=== PATIENT | male | born 1955 | race Caucasian/White ===

== ENCOUNTER 2022-03-23 09:16 | Emergency (ER) | payer OTHER ==
--- NOTE | 2022-03-23 11:52 | ED Physician Documentation ---
History of Present Illness - Stated complaint Stated Complaint: ABD PX - Chief complaint Chief Complaint: Abd Pain - History obtained from History obtained from: Patient - Additonal information Additional information: The patient comes to the emergency department chief complaint of urinary retention for about the last 12 hours. He states that he has a history of prostatic hypertrophy and that he has occasionally had difficulty urinating for. He denies any fevers or chills. He did not have any dysuria or hematuria leading up to this. Review of Systems Constitutional: reports: Reviewed and negative Eyes: reports: Reviewed and negative Ears: reports: Reviewed and negative Nose: reports: Reviewed and negative Throat: reports: Reviewed and negative Cardiac: reports: Reviewed and negative Respiratory: reports: Reviewed and negative GI: reports: Reviewed and negative : reports: Unable to Void Skin: reports: Reviewed and negative Musculoskeletal: reports: Reviewed and negative Neurologic: reports: Reviewed and negative Psychiatric: reports: Reviewed and negative Endocrine: reports: Reviewed and negative Immunocompromised: reports: Reviewed and negative PD PAST MEDICAL HISTORY - Allergies Allergies/Adverse Reactions: Allergies Allergy/AdvReac Type Severity Reaction Status Date / Time No Known Drug Allergies Allergy Verified 03/23/22 09:33 PD ED PE NORMAL - Vitals Vital signs reviewed: Yes - General General: Alert and oriented X 3, No acute distress, Well developed/nourished, Other (Appears uncomfortable but otherwise in no apparent distress.) - HEENT HEENT: Atraumatic, PERRL, EOMI, Moist mucous membranes - Neck Neck: Supple, no meningeal sign - Cardiac Cardiac: RRR, No murmur - Respiratory Respiratory: No respiratory distress, Clear bilaterally - Abdomen Abdomen: Soft, Other (Tender between suprapubic area and periumbilical area. Distended bladder palpable midway between pelvis and umbilicus) - Derm Derm: Warm and dry - Extremities Extremities: No deformity - Neuro Neuro: Alert and oriented X 3 - Psych Psych: Normal mood, Normal affect Results - Vitals Vitals: Oxygen O2 Source Room air PD Medical Decision Making - ED course Complexity details: reviewed results, re-evaluated patient, considered differential, d/w patient ED course: Bladder scan showed a distended bladder with over 900 cc of urine. A Yu catheter was placed by nursing staff and was found to drain well, with approximately 1200 cc of urine in the bag on reevaluation. The patient was given a leg bag and instructed regarding the need for follow-up either with his PCP, urology, or if he cannot been seen by them, then in a couple of days to have the catheter removed. We have discussed the usual indications for return. Departure - Departure Disposition: 01 Home, Self Care Clinical Impression: Urinary retention Condition: Stable Instructions: ED Catheter Care Gigi, ANUEL Retention Urinary Male Follow-Up: Anabel Steel MD [Physician No Access] - Cristiane Deshpande ARNP [Provider Admit Priv/Credential] - Comments: You had approximately 1500 cc of urine in your bladder. You should keep the catheter in for the next couple of days, after which it should be removed. You may have this done in primary care, urology, or if you cannot be seen in either these settings, you may return to the emergency department. Discharge Date/Time: 03/23/22 12:28
[2022-03-23 12:25] VITALS: BP 148/95
== END 2022-03-23 12:28 | disposition home or self-care (01) ==
LOC: ED 09:16
DX: R33.9 Retention of urine, unspecified (principal)
CPT/HCPCS: 51798; 99283

== ENCOUNTER 2022-03-29 02:00 | Emergency (ER) | payer OTHER ==
[2022-03-29 02:10] VITALS: BP 157/102
--- NOTE | 2022-03-29 02:40 | ED Physician Documentation ---
PD HPI MALE - Stated complaint Stated Complaint: MALE - Chief complaint Chief Complaint: General - History obtained from History obtained from: Patient - History of Present Illness Timing - details: Gradual onset Associated symptoms: Unable to urinate Recently seen: Emergency Dept - Additional information Additional information: HPI from patient. Patient was T+R from this ED 03/23 for urinary retention.He had not had this problem before then (except for occasional self-limited episodic difficulty urinating), and was discharged from the ED with lee catheter placed and left in place with recommendation to follow up with urology. Patient has not yet been able to arrange for follow up. Yesterday, patient had increasing irritation from the catheter and decided to remove it on his own. Unfortunately, he was unaware there was an inflated balloon at the proximal end of the device and thus he removed it with the balloon still inflated. He has urinated several times since removal, initially gross hematuria but this gradually cleared and he was urinating without pain, difficulty, or gross hematuria until this afternoon when he noted sensation of incomplete voiding followed by increasing urge to urinate with decreasing output, increasing suprapubic pain and distention, and not able to produce any urine for past few hours. Review of Systems Constitutional: denies: Fever GI: denies: Abdominal Pain : reports: Unable to Void. denies: Dysuria, Frequency, Hematuria (resolved (see narrative in HPI)) PD PAST MEDICAL HISTORY - Past Medical History Past Medical History: Yes : Retention - Past Surgical History Past Surgical History: No - Present Medications Home Medications: Ambulatory Orders Medication Instructions Recorded Confirmed Amox/Clav 875/125 [Augmentin 1 tablet PO Q12H 14 Days #28 tablet 03/29/22 875/125 Tab] Tamsulosin [Flomax] 0.4 mg PO DAILY #30 cap 03/29/22 - Allergies Allergies/Adverse Reactions: Allergies Allergy/AdvReac Type Severity Reaction Status Date / Time No Known Drug Allergies Allergy Verified 03/29/22 02:06 - Social History Does the pt smoke?: No Smoking Status: Never smoker Does the pt drink ETOH?: No Does the pt have substance abuse?: No - Immunizations Immunizations are current?: No Immunizations: TDAP >10years/unknown, Other immun not current - POLST Patient has POLST: No PD ED PE NORMAL - Vitals Vital signs reviewed: Yes - General General: Alert and oriented X 3, Well developed/nourished, Other (appears to be uncomfortable, painful distress) - Abdomen Abdomen: Soft, Other (suprapubic TTP with fullness on palpation) - Back Back: No CVA TTP Results - Vitals Vitals: Oxygen O2 Source Room air - Labs Labs: Laboratory Tests 03/29/22 02:33 Urine Color YELLOW Urine Clarity CLEAR Urine pH 6.0 Ur Specific [place] >=1.030 H Urine Protein TRACE Urine Glucose (UA) NEGATIVE Urine Ketones NEGATIVE Urine Occult Blood LARGE H Urine Nitrite NEGATIVE Urine Bilirubin NEGATIVE Urine Urobilinogen 0.2 (NORMAL) Ur Leukocyte Esterase NEGATIVE Urine RBC TNTC H Urine WBC 0-3 Ur Squamous Epith Cells RARE Squamous Urine Bacteria Rare Urine Mucus Few Strands Ur Microscopic Review INDICATED Urine Culture Comments NOT INDICATED PD Medical Decision Making - ED course Complexity details: reviewed old records, considered differential, d/w patient ED course: Presents for recurrence of urinary retention after having removed a lee catheter that was placed 03/23 in this ED. ED RN placed lee catheter without difficulty/resistance and over 800 cc clear yellow urine output with complete resolution of symptoms. Patient says he has contact information provided by ED MD (from previous visit) for at least two urology groups and he understands he needs to arrange for follow up. I also advised him that he can also follow up with his primary care provider or else return to the ED for timely removal of the catheter (ideally within 7-10 days). Given that he has had the catheter in place for a few days and uncertainty as to timing of available follow up, I am prescribing augmentin to prophylax against UTI. HE is given first dose in ED and rx transmitted to [facility] pharmacy. I also prescribed tamsulosin with first dose in ED. Departure - Departure Disposition: Home, Self Care Clinical Impression: Urinary retention Condition: Good Instructions: ED Catheter Care Gigi, ED Retention Urinary Male Prescriptions: Amox/Clav 875/125 [Augmentin 875/125 Tab] 1 tablet PO Q12H 14 Days #28 tablet Tamsulosin [Flomax] 0.4 mg PO DAILY #30 cap Comments: Prescriptions for tamsulosin (Flomax, medication that can help with urinary retention due to enlarged prostate) and Augmentin (antibiotic) have been electronically submitted to [facility] pharmacy in [place]. As we discussed, you should follow-up with a urologist and leave the catheter in place until you follow-up. To minimize the risk of an infection from the catheter I am starting you on an antibiotic. If possible, it would be ideal if you were seen by a urologist within 1 week. Another option, if you are having difficulty arranging follow-up with urology, is to see your primary care provider for reevaluation of the catheter and to inquire about referral to urology. As we discussed, the cause of your urinary retention cannot be determined in the emergency department; the most likely explanation is going to be a benign enlargement of the prostate. Of course, there are other causes and this is why follow-up with urology is very important (testing might be appropriate to determine that the cause of your urinary retention is not a concerning or dangerous cause). Discharge Date/Time: 03/29/22 03:13
[2022-03-29] MEDS ORDERED: TAMSULOSIN 0.4 MG CAPSULE PO STA (03:02)
[2022-03-29] MEDS ORDERED: AMOX/CLAV 875 MG/125 MG TABLET PO STA (03:02)
[2022-03-29 03:41] LABS: BILIRUBIN,URINE NEGATIVE (NEGATIVE); GLUCOSE, URINE (UA) NEGATIVE (NEGATIVE); KETONES,URINE (UA) NEGATIVE (NEGATIVE); LEUKOCYTE ESTERASE, URINE NEGATIVE (NEGATIVE); NITRITE,URINE NEGATIVE (NEGATIVE); OCCULT BLOOD,URINE LARGE (NEGATIVE); PROTEIN,URINE TRACE mg/dL (NEGATIVE); UROBILINOGEN,URINE 0.2 (NORMAL) E.U./dL (NORMAL)
[2022-03-29 03:43] LABS: CLARITY,URINE CLEAR (CLEAR)
[2022-03-29 03:47] LABS: WBC,URINE 0-3 /HPF (0-3)
[2022-03-29 03:48] LABS: BACTERIA,URINE Rare /HPF (None Seen); MUCUS,URINE Few Strands; RBC,URINE TNTC /HPF (0-5); SQUAMOUS EPITHELIAL CELL,UR RARE Squamous (<= Few)
== END 2022-03-29 03:13 | disposition home or self-care (01) ==
LOC: ED 02:00
DX: R33.9 Retention of urine, unspecified (principal)
CPT/HCPCS: 51702; 81001; 99283; 99284; A9270; 81003; 87086

== ENCOUNTER 2022-04-15 02:18 | Emergency (ER) | payer OTHER ==
--- NOTE | 2022-04-15 02:22 | ED Physician Documentation ---
PD HPI MALE - Stated complaint Stated Complaint: MALE - History obtained from History obtained from: Patient - History of Present Illness Timing - details: Gradual onset Associated symptoms: Unable to urinate Recently seen: Emergency Dept - Additional information Additional information: HPI from patient. Patient was T+R from this ED 03/23/22 for urinary retention, which was his first such episode. He was d/c with lee catheter in place and instructed to pursue follow up with urology (does not have a urologist). He returned 03/29/22 to this ED; he was unable to arrange follow up and had increasing irritation from the catheter and decided to remove it himself. Unfortunately, he was unaware of the balloon that needs to be deflated first, and thus he had significant pain and bleeding when he removed it. He removed the catheter 03/28/22 and by the time he came to ED the following day, the pain had resolved and he had been urinating clear urine but during the day of 03/29, decreasing UO despite increasing urge to urinate and again presented in urinary retention. Lee catheter again placed with over 1,000 cc UO and resolution of symptoms. He was prescribed flomax and started on augmentin for prophylaxis against infection given how long the catheter was (and would likely now be) in place. Patient has still not arranged follow up with urology. He removed the catheter himself yesterday, this time deflating the balloon first. Today, he again experienced gradually decreasing UO despite increasing urge and increasing suprapubic pain/fullness. Patient says he is between insurance coverage at this time, complicating the follow up arrangement. Review of Systems Constitutional: denies: Fever GI: reports: Abdominal Pain (suprapubic pain/pressure) : reports: Unable to Void PD PAST MEDICAL HISTORY - Past Medical History Past Medical History: No : Retention - Past Surgical History Past Surgical History: No - Present Medications Home Medications: Ambulatory Orders Medication Instructions Recorded Confirmed Amox/Clav 875/125 [Augmentin 1 tablet PO Q12H 14 Days #28 tablet 03/29/22 875/125 Tab] Tamsulosin [Flomax] 0.4 mg PO DAILY #30 cap 03/29/22 Tamsulosin [Flomax] 0.4 mg PO DAILY #30 cap 04/15/22 cephALEXin [Keflex] 500 mg PO TID #20 cap 04/15/22 - Allergies Allergies/Adverse Reactions: Allergies Allergy/AdvReac Type Severity Reaction Status Date / Time No Known Drug Allergies Allergy Verified 04/15/22 02:29 - Social History Does the pt smoke?: No Smoking Status: Never smoker Does the pt drink ETOH?: No Does the pt have substance abuse?: No - Immunizations Immunizations are current?: No Immunizations: TDAP >10years/unknown, Other immun not current - POLST Patient has POLST: No PD ED PE NORMAL - Vitals Vital signs reviewed: Yes - General General: Alert and oriented X 3, Well developed/nourished, Other (appears uncomfortable, with complete resolution of discomfort after ED RN places lee catheter) - Abdomen Abdomen: Soft, Other (suprapubic fullness and TTP) - Back Back: No CVA TTP Results - Vitals Vitals: Oxygen O2 Source Room air - Labs Labs: Microbiology 04/15/22 02:30 Urine Culture - Preliminary Urine,Catheterized Laboratory Tests 04/15/22 02:30 Urine Color YELLOW Urine Clarity CLEAR Urine pH 5.5 Ur Specific [place] 1.025 Urine Protein NEGATIVE Urine Glucose (UA) NEGATIVE Urine Ketones NEGATIVE Urine Occult Blood LARGE H Urine Nitrite NEGATIVE Urine Bilirubin NEGATIVE Urine Urobilinogen 0.2 (NORMAL) Ur Leukocyte Esterase SMALL H Urine RBC 6-10 H Urine WBC 6-10 H Ur Squamous Epith Cells NONE SEEN Urine Bacteria Few Ur Microscopic Review INDICATED Urine Culture Comments INDICATED PD Medical Decision Making - ED course Complexity details: considered differential, d/w patient ED course: ED RN placed lee catheter without resistance or difficulty, a little over 500 cc clear yellow urine output with resolution of symptoms. UA micro with 6-10 RBC / hpf, 6-10 WBC/hpf. He says he had to stop the augmentin (rx from previous visits) due to increasingly frequent loose stools/diarrhea. I will rx keflex at this time instead. He also asks for more rx for flomax, and this is also provided. I again instructed him to seek urology follow up, or else to follow up with primary care provider. Alternatives would be to go to walk-in clinic, urgent care, or return to the emergency department. At this time, I also discussed option for removal of the catheter himself (he is provided a syringe and instructed proper way to deflate balloon), recognizing he might again have urinary retention as a result of removal . Departure - Departure Disposition: 01 Home, Self Care Clinical Impression: Urinary retention Condition: Good Instructions: ED Catheter Care ANUEL Lee Retention Urinary Male Follow-Up: Siri Saunders PA-C [Provider Admit Priv/Credential] - Prescriptions: Tamsulosin [Flomax] 0.4 mg PO DAILY #30 cap cephALEXin [Keflex] 500 mg PO TID #20 cap Comments: I have electronically submitted prescriptions for more of the tamsulosin (Flomax) to the [facility] pharmacy in [place], along with a prescription for 1 week of cephalexin (an antibiotic, which is a different class of antibiotic from the previously prescribed antibiotic). You should certainly pursue follow-up with a urologist. This can be challenging if you are not already established with a urologist, particularly if you are between periods of being insured. Elsewhere on these discharge instructions, I have provided the office information for a family practice on [facility] which would likely be able to evaluate you if you are uninsured, and hopefully they can then provide you with the proper referral to a urology group. The catheter should be removed within 7 to 10 days from now. If possible, ideally this would be performed in a urologist office. Alternatively, you can contact the family practice office whose information is on these discharge sheets to see if you can arrange for a follow-up appointment with them within this timeframe. Other options would be to go to a walk-in clinic or an urgent care center, or else return to the emergency department. You can also remove the catheter yourself, provided you deflate the balloon using the syringe we have provided to you. However, as you have experienced on this visit, the concern would be that you would go back into urinary retention. Discharge Date/Time: 04/15/22 03:47
[2022-04-15 02:29] VITALS: BP 135/85
[2022-04-15 02:50] LABS: BILIRUBIN,URINE NEGATIVE (NEGATIVE); CLARITY,URINE CLEAR (CLEAR); GLUCOSE, URINE (UA) NEGATIVE (NEGATIVE); KETONES,URINE (UA) NEGATIVE (NEGATIVE); LEUKOCYTE ESTERASE, URINE SMALL (NEGATIVE); NITRITE,URINE NEGATIVE (NEGATIVE); OCCULT BLOOD,URINE LARGE (NEGATIVE); PH,URINE 5.5 PH (5.0-7.5); PROTEIN,URINE NEGATIVE (NEGATIVE); UROBILINOGEN,URINE 0.2 (NORMAL) E.U./dL (NORMAL)
[2022-04-15 02:59] LABS: BACTERIA,URINE Few /HPF (None Seen); SQUAMOUS EPITHELIAL CELL,UR NONE SEEN (<= Few)
[2022-04-15] MEDS ORDERED: cephALEXin 250 MG CAPSULE PO STA (03:26)
== END 2022-04-15 03:47 | disposition home or self-care (01) ==
LOC: ED 02:18
DX: R33.9 Retention of urine, unspecified (principal)
CPT/HCPCS: 51702; 81001; 87077; 87086; 99283; A9270; 81003